=== PATIENT | male | born 1970 | race Caucasian/White ===

== ENCOUNTER 2018-04-16 13:15 | Emergency (ER) | payer MEDICAID ==
[~2018-04-16] VITALS: Ht 172.7 cm; Wt 55.3 kg
[2018-04-16 13:15] VITALS: BP 139/112
[2018-04-16] MEDS ORDERED: NACL 0.9% 1,000 ML IV ONE (13:59)
[2018-04-16 14:35] LABS: BASOPHILS # (AUTO) 0.1 K/uL (0.00-0.22); BASOPHILS % (AUTO) 0.9 % (0.0-2.0); EOSINOPHILS % (AUTO) 0.6 % (0.0-4.0); HEMATOCRIT 44.2 % (36-52); HEMOGLOBIN 14.9 g/dL (12.0-18.0); LYMPHOCYTES # (AUTO) 1.4 K/uL (2.0-11.5); LYMPHOCYTES % (AUTO) 25.8 % (20.5-51.1); MEAN CORPUSCULAR HEMOGLOBIN 31 pg (27-31); MEAN CORPUSCULAR HGB CONC 34 g/dL (33-37); MEAN CORPUSCULAR VOLUME 91.2 fL (80-94); MONOCYTES # (AUTO) 0.3 K/uL (0.8-1.0); MONOCYTES % (AUTO) 4.8 % (1.7-9.3); NEUTROPHILS # (AUTO) 3.6 K/uL (1.8-7.7); NEUTROPHILS % (AUTO) 67.9 % (42.2-75.2); PLATELET COUNT (AUTO) 248 K/uL (140-450); RED BLOOD CELL COUNT(AUTO) 4.84 MIL/uL (4.20-6.10); WHITE BLOOD COUNT (AUTO) 5.3 K/uL (4.8-10.8)
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
[2018-04-16 14:54] LABS: APPEARANCE,URINE CLEAR (CLEAR); BILIRUBIN,URINE NEGATIVE (NEGATIVE); BLOOD, URINE NEGATIVE (NEGATIVE); COLOR,URINE YELLOW (YELLOW); LEUKOCYTE ESTERASE ,URINE NEGATIVE (NEGATIVE); NITRITE, URINE NEGATIVE (NEGATIVE); UGLUCOSE NEGATIVE (NEGATIVE)
[2018-04-16 14:56] LABS: BARBITURATE, URINE NEG. ng/ml (NEG <=200); BENZODIAZEPINE, URINE NEG. ng/mL (NEG <=200); CANNABINOID, URINE NEG. ng/mL (NEG <=50); COCAINE, URINE NEG. ng/mL (NEG <=300); OPIATE, URINE NEG. ng/mL (NEG <=2000); PHENCYCLIDINE SCREEN,URINE NEG. ng/mL (NEG <=25)
[2018-04-16 14:59] LABS: ALBUMIN 3.9 g/dL (3.4-5.0); ASPARTATE AMINOTRANSFERASE 18 U/L (15-37); CARBON DIOXIDE 25.7 mmol/L (21-32); CHLORIDE 106 mmol/L (98-107); CREATININE 0.8 mg/dL (0.7-1.3); GFR ARICAN-AMERICAN 134 mL/min (>90); GLUCOSE 91 mg/dL (74-106); POTASSIUM 3.7 mmol/L (3.5-5.1); SODIUM SERUM 138 mmol/L (136-145); TOTAL BILIRUBIN 0.4 mg/dL (0.0-1.0); UREA NITROGEN, BLOOD 19 mg/dL (7-18)
[2018-04-16 15:02] LABS: SALICYLATE < 2.8 mg/dL (2.8-20.0)
[2018-04-16 15:39] LABS: ACETAMINOPHEN < 0.5 ug/ml (10-30)
--- NOTE | 2018-04-16 16:02 | NUR ---
Patient ambulated to and from bathroom with steady gait. Returned to rm 11 without incident. Patient appears restlessness and anxious. Pressured speech noted. Patient with no new complaints. Will continue to monitor.
[2018-04-16] MEDS ORDERED: HALOPERIDOL IM 5 MG/ML VIAL IM ONE (17:00)
[2018-04-16] MEDS ORDERED: LORazepam 2 MG/ML VIAL IM ONE (17:00)
[2018-04-16] MEDS ORDERED: diphenhydrAMINE 50 MG/ML VIAL IM ONE (17:00)
--- NOTE | 2018-04-16 17:00 | NUR ---
Patient became upset and aggressive. Yelling at staff. Security called. Staff de-escalted situation. Pt returned to [facility]. Will continue to monitor. Er md mosley made aware. New orders given.
--- NOTE | 2018-04-16 18:20 | NUR ---
PATIENT IS SLEEPING IN BED, NO ACUTE DISTRESS NOTED, PATIENT CONNECTED TO BP CUFF, LEADS, AND O2 SAT.
--- NOTE | 2018-04-16 18:50 | NUR ---
PATIENT IS SLEEPING IN BED, NO ACUTE DISTRESS NOTED, PATIENT CONNECTED TO BP CUFF, LEADS, AND O2 SAT.
--- NOTE | 2018-04-16 19:10 | NUR ---
Pt report given to Evelin HEWITT. Transfer of care at this time.
--- NOTE | 2018-04-16 19:32 | NUR ---
Patient discharged with v/s stable. Written and verbal after care instructions given and explained. Patient alert, oriented and verbalized understanding of instructions. Ambulatory with steady gait. All questions addressed prior to discharge. ID band removed. Patient advised to follow up with PMD. Rx of Haloperidol, and Diphenhydramine Hydrochloride given. Patient educated on indication of medication including possible reaction and side effects. Opportunity to ask questions provided and answered.
[2018-04-16 20:30] VITALS: BP 111/64
== END 2018-04-16 19:32 | disposition home or self-care (01) ==
LOC: MED 13:15
DX: F20.9 Schizophrenia, unspecified (principal); F22 Delusional disorders; Z00.8 Encounter for other general examination; Z20.9 Contact with and (suspected) exposure to unspecified communicable disease
CPT/HCPCS: 36415; 71045; 80053; 80305; 81003; 85025; 96372; 99284; G0480; G0482; J1200; J1630; J2060; J7030

== ENCOUNTER 2018-10-06 21:28 | Emergency (ER) | payer MEDICAID ==
[~2018-10-06] VITALS: Ht 175.3 cm; Wt 81.6 kg
[2018-10-06 21:51] VITALS: BP 113/94
--- NOTE | 2018-10-06 22:00 | NUR ---
EKG PERFORMED IN TRIAGE BY EMT.
--- NOTE | 2018-10-06 22:08 | NUR ---
PT TOLD TO WAIT IN LOBBY FOR AVAILABLE BED. PT BECAME VERBALLY ABUSIVE. CUSSING AT STAFF MEMBERS AND PACING LOBBY. SECURITY CALLED.
--- NOTE | 2018-10-06 22:15 | NUR ---
PT AMBULATED TO BED 01
--- NOTE | 2018-10-06 22:40 | NUR ---
PT CAME TO ER C/O OF FEELING WEAK, LIGHTHEADED AND HAVING CHILLS. PER PT HE HAS A TINGLING SENSATION IN HIS HANDS, LEGS AND FEET, HAS VISION CHANGES, AND FEELS LIKE THERE IS WATER IN HIS RIGHT EAR. PT ALSO STATES HE FEELS LIKE HE HAS WATER IN HIS LUNGS. RESPIRATIONS ARE EVEN AND UNLABORED. O2 SATURATION 100% RA. BREATH SOUNDS ARE CLEAR BILATERALLY. PT DOES HAVE NONPRODUCTIVE COUGH. PT DENIES ANY PAIN, PAIN LEVEL 0/10. PT DENIED DRINKING ALCOHOL AND USING RECREATIONAL DRUGS. MED HX: HEPATITIS C AND STAGE 2 LIVER DISEASE. SAFETY MEASURES IN PLACE. WAITING FOR ERMD TO EVALUATE PT.
--- NOTE | 2018-10-07 00:10 | NUR ---
PT AMBULATED TO RESTROOM AND VOMITTING. ERMD AWARE.
[2018-10-07 00:25] VITALS: BP 147/102
--- NOTE | 2018-10-07 00:25 | NUR ---
Patient discharged BY DR. CAMPA with v/s stable. Written and verbal after care instructions given and explained. Patient alert, oriented and verbalized understanding of instructions. Ambulatory with steady gait. All questions addressed prior to discharge. ID band removed. Patient advised to follow up with PMD. Rx of NAPROSYN WAS given. Patient educated on indication of medication including possible reaction and side effects. Opportunity to ask questions provided and answered.
== END 2018-10-07 00:25 | disposition home or self-care (01) ==
LOC: MED 21:28
DX: R09.1 Pleurisy (principal); R53.1 Weakness; F12.10 Cannabis abuse, uncomplicated; Z86.19 Personal history of other infectious and parasitic diseases; Z98.890 Other specified postprocedural states
CPT/HCPCS: 71045; 93005; 99283; Q0092

== ENCOUNTER 2019-07-17 07:24 | Emergency (ER) | payer MEDICAID ==
[~2019-07-17] VITALS: Ht 175.3 cm; Wt 84.4 kg
[2019-07-17 07:35] VITALS: BP 135/103
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
--- NOTE | 2019-07-17 07:37 | NUR ---
PT AMBULATED TO ER BED 12
[2019-07-17] MEDS ORDERED: OLANZapine 5 MG ODT PO ONE (08:15)
[2019-07-17 08:36] LABS: BASOPHILS # (AUTO) 0.1 K/uL (0.00-0.22); BASOPHILS % (AUTO) 1.1 % (0.0-2.0); EOSINOPHILS % (AUTO) 0.8 % (0.0-4.0); HEMATOCRIT 43.1 % (36-52); HEMOGLOBIN 14.8 g/dL (12.0-18.0); LYMPHOCYTES # (AUTO) 1.9 K/uL (2.0-11.5); LYMPHOCYTES % (AUTO) 35.1 % (20.5-51.1); MEAN CORPUSCULAR HEMOGLOBIN 31 pg (27-31); MEAN CORPUSCULAR HGB CONC 34 g/dL (33-37); MEAN CORPUSCULAR VOLUME 90.3 fL (80-94); MONOCYTES # (AUTO) 0.5 K/uL (0.8-1.0); MONOCYTES % (AUTO) 8.7 % (1.7-9.3); NEUTROPHILS % (AUTO) 54.3 % (42.2-75.2); PLATELET COUNT (AUTO) 293 K/uL (140-450); RED BLOOD CELL COUNT(AUTO) 4.77 MIL/uL (4.20-6.10); RED CELL DISTRIBUTION WIDTH 13.5 % (11.6-13.7); WHITE BLOOD COUNT (AUTO) 5.5 K/uL (4.8-10.8)
[2019-07-17 08:51] LABS: ALBUMIN 3.9 g/dL (3.4-5.0); ANION GAP 11.6 (8-16); CARBON DIOXIDE 29.3 mmol/L (21-32); POTASSIUM 3.9 mmol/L (3.5-5.1); TOTAL BILIRUBIN 0.4 mg/dL (0.0-1.0)
[2019-07-17 09:56] VITALS: BP 130/90
--- NOTE | 2019-07-17 09:56 | NUR ---
Patient discharged with v/s stable. Written and verbal after care instructions given and explained. Patient alert, oriented and verbalized understanding of instructions. Ambulatory with steady gait. All questions addressed prior to discharge. ID band removed. Patient advised to follow up with PMD. Rx of ZYPREXA,DIPHENHYDRAMINE given. Patient educated on indication of medication including possible reaction and side effects. Opportunity to ask questions provided and answered.
== END 2019-07-17 09:56 | disposition home or self-care (01) ==
LOC: MED 07:24
DX: F41.9 Anxiety disorder, unspecified (principal); F60.0 Paranoid personality disorder; F29 Unspecified psychosis not due to a substance or known physiological condition; L98.9 Disorder of the skin and subcutaneous tissue, unspecified; F32.9 Major depressive disorder, single episode, unspecified; F43.10 Post-traumatic stress disorder, unspecified; Z88.5 Allergy status to narcotic agent; Z88.6 Allergy status to analgesic agent
CPT/HCPCS: 36415; 80053; 85025; 99283

== ENCOUNTER 2020-04-01 14:52 | Emergency (ER) | payer MEDICAID ==
[~2020-04-01] VITALS: Ht 177.8 cm; Wt 90.7 kg
[2020-04-01 15:09] VITALS: BP 140/97
[2020-04-01] MEDS ORDERED: IBUPROFEN 600 MG TAB PO ONE (16:20)
[2020-04-01 16:26] VITALS: BP 124/85
== END 2020-04-01 16:26 | disposition home or self-care (01) ==
LOC: MED 14:52
DX: L03.211 Cellulitis of face (principal); F12.10 Cannabis abuse, uncomplicated; Z88.6 Allergy status to analgesic agent; Z88.5 Allergy status to narcotic agent
CPT/HCPCS: 99283

== ENCOUNTER 2020-04-06 19:10 | Emergency (ER) | payer MEDICAID ==
[~2020-04-06] VITALS: Ht 175.3 cm; Wt 90.7 kg
[2020-04-06 19:27] VITALS: BP 120/71
--- NOTE | 2020-04-06 19:27 | NUR ---
TO BED AMBULATORY
--- NOTE | 2020-04-06 19:30 | NUR ---
RECEIVED IN BED 4 FROM TRIAGE WITH C/O FACIAL PAIN AND BLOOD INFECTION. WAS SEEN HERE FOR THE SAME LAST WEEK AND WAS STARTED ON ABX. PT HAS BEEN PICKING AND SQUEEZING ABSCESSES. "I THINK THEY WERE BITES. WHEN I SQUEEZED THEM, BLACK BLOOD CAME OUT"
--- NOTE | 2020-04-06 19:37 | NUR ---
DR. MOJICA AT BEDSIDE FOR EXAM AND EVAL.
[2020-04-06] MEDS: KETOROLAC 30 MG/ML VIAL IVP ONE (20:13)
--- NOTE | 2020-04-06 20:15 | NUR ---
LAB AT BEDSIDE
[2020-04-06 20:42] LABS: BASOPHILS % (AUTO) 0.4 % (0.0-2.0); EOSINOPHILS % (AUTO) 0.2 % (0.0-4.0); HEMATOCRIT 48.6 % (36-52); HEMOGLOBIN 16.6 g/dL (12.0-18.0); LYMPHOCYTES # (AUTO) 1.7 K/uL (2.0-11.5); LYMPHOCYTES % (AUTO) 24.9 % (20.5-51.1); MEAN CORPUSCULAR HEMOGLOBIN 30 pg (27-31); MEAN CORPUSCULAR HGB CONC 34 g/dL (33-37); MEAN CORPUSCULAR VOLUME 88.1 fL (80-94); MONOCYTES # (AUTO) 0.6 K/uL (0.8-1.0); MONOCYTES % (AUTO) 9.1 % (1.7-9.3); NEUTROPHILS # (AUTO) 4.3 K/uL (1.8-7.7); NEUTROPHILS % (AUTO) 65.4 % (42.2-75.2); PLATELET COUNT (AUTO) 322 K/uL (140-450); RED BLOOD CELL COUNT(AUTO) 5.52 MIL/uL (4.20-6.10); RED CELL DISTRIBUTION WIDTH 13.3 % (11.6-13.7); WHITE BLOOD COUNT (AUTO) 6.7 K/uL (4.8-10.8)
[2020-04-06 20:46] LABS: ALBUMIN 4.5 g/dL (3.4-5.0); ANION GAP 14.5 (8-16); CARBON DIOXIDE 25.3 mmol/L (21-32); CREATININE 1.2 mg/dL (0.6-1.3); POTASSIUM 3.8 mmol/L (3.5-5.1); TOTAL BILIRUBIN 0.7 mg/dL (0.0-1.0)
--- NOTE | 2020-04-06 21:00 | NUR ---
DR MOJICA AT BEDSIDE FOR RE-EVAL AND DISPOSITION.
[2020-04-06 21:06] VITALS: BP 120/98
--- NOTE | 2020-04-06 21:06 | NUR ---
Patient discharged with v/s stable. Written and verbal after care instructions given and explained. Patient alert, oriented and verbalized understanding of instructions. Ambulatory with steady gait. All questions addressed prior to discharge. ID band removed. Patient advised to follow up with PMD. Rx of BACTRIM DS, BACTROBAN 2%, MOTRIN given. Patient educated on indication of medication including possible reaction and side effects. Opportunity to ask questions provided and answered.
== END 2020-04-06 21:06 | disposition home or self-care (01) ==
LOC: MED 19:10
DX: F06.2 Psychotic disorder with delusions due to known physiological condition (principal); F20.0 Paranoid schizophrenia; Z88.2 Allergy status to sulfonamides; Z88.5 Allergy status to narcotic agent
CPT/HCPCS: 36415; 80053; 85025; 87040; 96374; 99283; J1885

== ENCOUNTER 2020-04-15 08:55 | Emergency (ER) | payer MEDICAID, SELFPAY ==
[~2020-04-15] VITALS: Ht 177.8 cm; Wt 90.7 kg
[2020-04-15 09:12] VITALS: BP 102/36
[2020-04-15 10:12] VITALS: BP 123/82
== END 2020-04-15 10:12 | disposition home or self-care (01) ==
LOC: MED 08:55
DX: R05 Cough (principal); Z20.822 Contact with and (suspected) exposure to COVID-19; Z98.890 Other specified postprocedural states; Z88.5 Allergy status to narcotic agent; Z88.6 Allergy status to analgesic agent
CPT/HCPCS: 71045; 99284; U0003

== ENCOUNTER 2020-05-31 23:56 | Emergency (ER) | payer MEDICAID, SELFPAY ==
[~2020-05-31] VITALS: Ht 175.3 cm; Wt 89.8 kg
[2020-05-31 23:58] VITALS: BP 148/100
--- NOTE | 2020-06-01 00:06 | NUR ---
Pt ambulated to lobby w/ steady gait. VSS. No acute distress noted.
--- NOTE | 2020-06-01 00:47 | NUR ---
50 Y/O MALE PRESENTED TO ED C/O ANXIETY. PT STATES HE HAS A HX OF PTSD AND HAS HAD SOME UPSETTING NEWS THIS PAST WEEK THAT HAS CAUSED HIM TO FEEL ANXIOUS. PT STATES HE HASN'T BEEN TAKING HIS MEDICATION BECAUSE IT CAUSES HIM TO SLEEP WALK. OBSERVED RR EVEN AND UNLABORED, OXYGEN LEVEL 98%. NO ACUTE DISTRESS NOTED. PT RESTING IN BED, LOCKED AND IN LOWEST POSITION , HOB ELEVATED, SIDE RAIL X1. VSS. PMH: PTSD, KNEE SURGERY AX: CODEINE
--- NOTE | 2020-06-01 00:47 | NUR ---
PT AMBULATED TO ER BED 4 W/ STEADY GAIT.
--- NOTE | 2020-06-01 01:03 | NUR ---
Patient being evaluated by physician at bedside.
[2020-06-01] MEDS ORDERED: ATI.5 PO (01:11)
== END 2020-06-01 01:20 | disposition home or self-care (01) ==
LOC: MED 23:56
DX: F41.9 Anxiety disorder, unspecified (principal); F17.210 Nicotine dependence, cigarettes, uncomplicated; F12.10 Cannabis abuse, uncomplicated; Z88.6 Allergy status to analgesic agent; Z88.5 Allergy status to narcotic agent
CPT/HCPCS: 99283

== ENCOUNTER 2020-11-27 02:45 | Emergency (ER) | payer MEDICAID ==
[~2020-11-27] VITALS: Ht 175.3 cm; Wt 83.9 kg
[2020-11-27 02:45] VITALS: BP 158/115
[~2020-11-27 02:45] MED LIST: ATI.5 PO
--- NOTE | 2020-11-27 03:00 | NUR ---
ANITA FROM HOME, PT. IS A 50 Y/O MALE WITH C/O OF SI. PT. STATES HE HAS BEEN HAVING "SEVERELY ANXIOUS THOUGHTS THAT HAVE BECOME PARANOIA FOR SOME TIME NOW" AND DECIDED TO CALL 911 ON HIMSELF DUE TO "THESE THOUGHTS." PT. CALM AND COOPERATIVE UPON ARRIVAL. PT. PRESENTS WITH SKIN LESIONS ON BILATERAL UPPER AND LOWER EXTREMITIES. DENIES N/V/D; AAOX4 WITH EVEN AND STEADY GAIT; HR EVEN AND REGULAR; PT DENIES ANY FEVER, CP, SOB, OR COUGH AT THIS TIME; PATIENT STATES PAIN OF 0/10 AT THIS TIME; VSS; PATIENT POSITIONED FOR COMFORT; HOB ELEVATED; BEDRAILS UP X2; BED DOWN. ER MD MADE AWARE OF PT STATUS. PMH: HEP. C, STAGE 2 LIVER DISEASE, BIPOLAR, DEPRESSION, ANXIETY ALLERGIES: SEE ALLERGY LIST
--- NOTE | 2020-11-27 04:28 | NUR ---
PT. SITTING IN HIGH FOWLERS POSITION, WITH EYES CLOSED. VOICES NO COMPLAINTS AT THIS TIME. WILL CONT. TO MONITOR
--- NOTE | 2020-11-27 04:40 | NUR ---
VALENTE DANIAL AT BEDSIDE
[2020-11-27] MEDS ORDERED: LORazepam 0.5 MG TAB PO ONE (04:55)
[2020-11-27 06:00] LABS: BASOPHILS # (AUTO) 0.1 K/uL (0.00-0.22); BASOPHILS % (AUTO) 0.9 % (0.0-2.0); EOSINOPHILS % (AUTO) 0.4 % (0.0-4.0); HEMATOCRIT 43.9 % (36-52); HEMOGLOBIN 15.2 g/dL (12.0-18.0); LYMPHOCYTES # (AUTO) 1.9 K/uL (2.0-11.5); LYMPHOCYTES % (AUTO) 31.4 % (20.5-51.1); MEAN CORPUSCULAR HEMOGLOBIN 30 pg (27-31); MEAN CORPUSCULAR HGB CONC 35 g/dL (33-37); MEAN CORPUSCULAR VOLUME 87.8 fL (80-94); MONOCYTES # (AUTO) 0.5 K/uL (0.8-1.0); MONOCYTES % (AUTO) 8.1 % (1.7-9.3); NEUTROPHILS # (AUTO) 3.6 K/uL (1.8-7.7); NEUTROPHILS % (AUTO) 59.2 % (42.2-75.2); PLATELET COUNT (AUTO) 287 K/uL (140-450); RED BLOOD CELL COUNT(AUTO) 4.99 MIL/uL (4.20-6.10); RED CELL DISTRIBUTION WIDTH 13.4 % (11.6-13.7); WHITE BLOOD COUNT (AUTO) 6.1 K/uL (4.8-10.8)
--- NOTE | 2020-11-27 06:00 | NUR ---
PT. ABLE TO GIVE URINE SAMPLE AT THIS TIME.
[2020-11-27 06:17] LABS: ANION GAP 12.8 (8-16); ASPARTATE AMINOTRANSFERASE 29 U/L (15-37); CARBON DIOXIDE 26.1 mmol/L (21-32); CHLORIDE 102 mmol/L (98-107); CREATININE 0.9 mg/dL (0.6-1.3); GFR ARICAN-AMERICAN 116 mL/min (>90); GLUCOSE 111 mg/dL (74-106); POTASSIUM 3.9 mmol/L (3.5-5.1); SODIUM SERUM 137 mmol/L (136-145); TOTAL BILIRUBIN 0.8 mg/dL (0.0-1.0); UREA NITROGEN, BLOOD 16 mg/dL (7-18)
[2020-11-27 06:19] LABS: SALICYLATE < 2.8 mg/dL (2.8-20.0)
[2020-11-27 06:20] LABS: ACETAMINOPHEN < 0.5 ug/ml (10-30)
--- NOTE | 2020-11-27 06:30 | NUR ---
PT. AMBULATED TO BATHROOM WITH EVEN AND STEADY GAIT.
--- NOTE | 2020-11-27 07:34 | NUR ---
PT. SITTING IN HIGH FOWLERS POSITION, WITH EYES CLOSED. VOICES NO COMPLAINTS AT THIS TIME. WILL CONT. TO MONITOR
--- NOTE | 2020-11-27 08:29 | NUR ---
PT SPEAKING WITH PSYCHIATRIST AT THIS TIME
[2020-11-27 09:24] LABS: BARBITURATE, URINE NEGATIVE ng/ml (NEG <=200); BENZODIAZEPINE, URINE NEGATIVE ng/mL (NEG <=200); COCAINE, URINE NEGATIVE ng/mL (NEG <=300)
[2020-11-27 09:25] LABS: CANNABINOID, URINE POSITIVE ng/mL (NEG <=50); OPIATE, URINE NEGATIVE ng/mL (NEG <=2000); PHENCYCLIDINE SCREEN,URINE NEGATIVE ng/mL (NEG <=25)
--- NOTE | 2020-11-27 10:54 | NUR ---
PT. SITTING IN HIGH FOWLERS POSITION, WITH EYES CLOSED. VOICES NO COMPLAINTS AT THIS TIME. WILL CONT. TO MONITOR
--- NOTE | 2020-11-27 12:04 | NUR ---
PATIENT SITTING UP IN BED, PROVIDED LUNCH TRAY AT THIS TIME
--- NOTE | 2020-11-27 14:25 | NUR ---
Packet received for placement. Fax out to [facility] and [facility]
--- NOTE | 2020-11-27 14:30 | NUR ---
FACUNDO CASE MANAGEMENT/METHODS STUDY ANALYST SPEAKING WITH PATIENT
--- NOTE | 2020-11-27 15:00 | NUR ---
PER FACUNDO CASE MANAGEMENT/TRENCHER DRIVER PT TO BE DISCHARGED WITH RESOURCES AND TRANSPORT. FACUNDO S/W PATIENT REGARDING PLAN OF CARE
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
--- NOTE | 2020-11-27 16:28 | NUR ---
PT SITTING UP IN BED RESTING WITH EYES CLOSED, EASILY AWAKENED TO VERBAL STIMULI. VSS. ALL NEEDS MET AT THIS TIME
--- NOTE | 2020-11-27 16:57 | NUR ---
TAXI VOUCHER PROVIDED. TAXI ARRANGEMENTS MADE AND ETA 45 MINUTES FOR INHALATION THERAPIST.
[2020-11-27 17:13] VITALS: BP 117/70
--- NOTE | 2020-11-27 17:14 | NUR ---
Patient discharged with v/s stable. Written and verbal after care instructions given and explained. Patient verbalized understanding. Ambulatory with steady gait. PATIENT PROVIDED TRANSPORTATION TO [facility]
== END 2020-11-27 17:13 | disposition home or self-care (01) ==
LOC: MED 02:45
DX: R45.851 Suicidal ideations (principal); F41.9 Anxiety disorder, unspecified; F60.0 Paranoid personality disorder; F43.10 Post-traumatic stress disorder, unspecified; F32.9 Major depressive disorder, single episode, unspecified; Z88.6 Allergy status to analgesic agent; Z88.5 Allergy status to narcotic agent; Z20.822 Contact with and (suspected) exposure to COVID-19
CPT/HCPCS: 80053; 80305; 85025; 87426; 99285; G0480; G0482; U0003